=== PATIENT | male | born 1945 | race Caucasian/White ===

== ENCOUNTER 2021-06-13 12:32 | Inpatient (IN) ==
[2021-06-13] MEDS ORDERED: SODIUM CHLORIDE 0.9% 1,000 ML IV STA (16:24)
[2021-06-13 16:51] LABS: Basophils # 0.1 10*3/uL (0.0-0.2); Basophils % 0.9 % (0.0-0.8); Eosinophils % 0.4 % (0.00-10.9); Hematocrit 35.2 VOL% (42.0-52.0); Hemoglobin 10.8 GM/DL (14.0-18.0); Immature Granulocytes % 0.7 %; Immature Granulocytes Absolute 0.04 #; Lymphocytes # 0.4 10*3/uL (1.4-4.0); Lymphocytes % 7.7 % (21.2-54.2); Mean Corpuscular HGB Conc 30.7 GM/DL (32-36); Mean Corpuscular Volume 71.8 FL (87-102); Mean Platelet Volume 11.2 FL (9.6-12.0); Monocytes % 5.9 % (1.7-12.7); Neutrophils % 84.4 % (38.7-73.9); Platelet Count 211 T/CUMM (130-400); Red Cell Distribution Width 20.3 % (9.3-17.3); White Blood Count 5.5 T/CUMM (4-12)
[2021-06-13 17:04] LABS: Bilirubin,Total 0.4 MG/DL (0.20-1.00); Calcium 9.5 MG/DL (8.5-10.1); Osmolality,Calculated 266.7 MOS/KG (273-304); Potassium 4.1 MMOL/L (3.5-5.1); Total Protein 8.9 G/DL (6.4-8.2)
[2021-06-13] MEDS ORDERED: CLINDAMYCIN INJ 600 MG/50 ML PREMIX IV STA (17:29)
[2021-06-13] MEDS ORDERED: ACETAMINOPHEN 500 MG TABLET PO STA (17:29)
[2021-06-13 20:01] LABS: Bilirubin,Urine Small mg/dL (Negative); Blood, Urine Negative (Negative); Glucose,Urine (UA) Negative (Negative); Ketones,Urine Trace mg/dL (Negative); Nitrite,Urine Negative (Negative); Protein,Urine Trace MG/DL; Urine Appearance Clear (Clear); Urine Color Yellow (Yellow); Urine Specific Gravity 1.015 (1.001-1.035)
[2021-06-13 20:13] LABS: Bacteria,Urine Occasional /HPF (Few); Mucus,Urine Occasional /LPF (Occasional); RBC,Urine 3 /HPF (0-4)
[2021-06-13] MEDS ORDERED: DEXTROSE 10% 250 ML BAG IV PRN (20:19)
[2021-06-13] MEDS ORDERED: ONDANSETRON 4 MG/2 ML VIAL IV PRN (20:19)
[2021-06-13] MEDS ORDERED: GLUCAGON 1 MG VIAL IM PRN (20:19)
[2021-06-13] MEDS ORDERED: ZALEPLON 5 MG CAPSULE PO PRN (20:19)
[2021-06-13] MEDS ORDERED: ENOXAPARIN 40 MG/0.4 ML SYRINGE SUBCUT SCH (21:00)
[2021-06-13] MEDS: SODIUM CHLORIDE 0.9% 1,000 ML IV SCH (21:03)
[2021-06-13] MEDS: ACETAMINOPHEN 325 MG TABLET PO PRN (21:03)
[2021-06-14] MEDS: CLINDAMYCIN INJ 600 MG/50 ML PREMIX IV SCH ×2 (01:16→09:10)
[2021-06-14] MEDS: ACETAMINOPHEN 325 MG TABLET PO PRN ×2 (03:14→15:31)
[2021-06-14] MEDS ORDERED: IBUPROFEN 800 MG TABLET PO ONE (04:52)
[2021-06-14 05:43] LABS: Basophils % 1.3 % (0.0-0.8); Hematocrit 28.3 VOL% (42.0-52.0); Immature Granulocytes % 2.2 %; Immature Granulocytes Absolute 0.07 #; Lymphocytes # 0.3 10*3/uL (1.4-4.0); Lymphocytes % 8.4 % (21.2-54.2); Mean Corpuscular HGB Conc 31.8 GM/DL (32-36); Mean Corpuscular Volume 70.4 FL (87-102); Mean Platelet Volume 11.1 FL (9.6-12.0); Monocytes % 7.2 % (1.7-12.7); Neutrophils % 80.9 % (38.7-73.9); Red Blood Count 4.02 MC/CUMM (3.8-5.5); Red Cell Distribution Width 19.7 % (9.3-17.3)
[2021-06-14 05:52] LABS: Platelet Count 149 T/CUMM (130-400); White Blood Count 3.2 T/CUMM (4-12)
[2021-06-14 05:57] LABS: Calcium 8.8 MG/DL (8.5-10.1); Osmolality,Calculated 267.7 MOS/KG (273-304); Potassium 3.8 MMOL/L (3.5-5.1)
[2021-06-14] MEDS ORDERED: NITROGLYCERIN SL 0.4 MG TABLET SL PRN (08:29)
[2021-06-14] MEDS ORDERED: PNEUMOCOCCAL VACCINE (13 VALENT) 0.5 ML SYRINGE IM ONE (09:00)
[2021-06-14] MEDS: SODIUM CHLORIDE 0.9% 1,000 ML IV SCH (09:09)
[2021-06-14] MEDS: FENOFIBRATE 160 MG TABLET PO SCH (09:10)
[2021-06-14] MEDS: PANTOPRAZOLE 40 MG TABLET PO SCH (09:10)
[2021-06-14] MEDS: METOPROLOL SUCCINATE XL 25 MG TABLET PO SCH (09:10)
[2021-06-14] MEDS: CHOLECALCIFEROL 1,000 UNIT TABLET PO SCH (09:10)
[2021-06-14] MEDS: PIPERACILLIN/TAZOBACTAM 3,375 MG in SODIUM CHLORIDE 0.9% 100 ML IV SCH ×2 (14:24→21:23)
[2021-06-14] MEDS ORDERED: MORPHINE 4 MG/1 ML VIAL IV PRN ×2 (15:34)
[2021-06-14] MEDS: VANCOMYCIN INJ 1,250 MG in SODIUM CHLORIDE 0.9% 250 ML IV SCH (18:21)
[2021-06-15] MEDS: SODIUM CHLORIDE 0.9% 1,000 ML IV SCH ×4 (04:38→16:32)
[2021-06-15] MEDS: ACETAMINOPHEN 325 MG TABLET PO PRN (04:38)
[2021-06-15 06:08] LABS: Basophils % 1.2 % (0.0-0.8); Eosinophils # 0.1 10*3/uL (0.0-0.87); Eosinophils % 1.7 % (0.00-10.9); Hematocrit 29.8 VOL% (42.0-52.0); Hemoglobin 9.7 GM/DL (14.0-18.0); Immature Granulocytes % 2.6 %; Immature Granulocytes Absolute 0.09 #; Lymphocytes # 0.8 10*3/uL (1.4-4.0); Lymphocytes % 22.5 % (21.2-54.2); Mean Corpuscular HGB Conc 32.6 GM/DL (32-36); Mean Corpuscular Volume 68.7 FL (87-102); Monocytes % 6.1 % (1.7-12.7); Neutrophils % 65.9 % (38.7-73.9); Platelet Count 103 T/CUMM (130-400); Red Blood Count 4.34 MC/CUMM (3.8-5.5); White Blood Count 3.5 T/CUMM (4-12)
[2021-06-15 06:16] LABS: Calcium 8.8 MG/DL (8.5-10.1); Osmolality,Calculated 266.7 MOS/KG (273-304); Potassium 3.8 MMOL/L (3.5-5.1)
[2021-06-15 06:21] LABS: VLDL Cholesterol 34.2 MG/DL
[2021-06-15] MEDS ORDERED: LIDOCAINE 1% 50 ML VIAL ONE (06:25)
[2021-06-15] MEDS ORDERED: BUPIVACAINE MPF 0.25% 30 ML VIAL ONE (06:25)
[2021-06-15 06:26] LABS: Band Neutrophils 6 % (0-10); Hypochromia 1+; Lymphocytes 24 % (20-55); Microcytosis 1+; Segmented Neutrophils 61 % (50-85); Total Cells Counted 100
[2021-06-15] MEDS ORDERED: SEVOFLURANE 1 UNIT/15 MINUTE INH ONE (07:05)
[2021-06-15] MEDS ORDERED: ETOMIDATE 40 MG/20 ML VIAL IV ONE (07:05)
[2021-06-15] MEDS ORDERED: propofoL 200 MG/20 ML VIAL IV ONE (07:05)
[2021-06-15] MEDS ORDERED: LIDOCAINE 2% 5 ML VIAL ONE (07:05)
[2021-06-15] MEDS ORDERED: fentaNYL 100 MCG/2 ML VIAL ONE (07:06)
[2021-06-15] MEDS: PIPERACILLIN/TAZOBACTAM 3,375 MG in SODIUM CHLORIDE 0.9% 100 ML IV SCH ×3 (07:11→21:29)
[2021-06-15] MEDS ORDERED: SODIUM CHLORIDE 0.9% 1,000 ML IV SCH (07:30)
[2021-06-15] MEDS ORDERED: PHENYLEPHRINE 1 MG/10 ML SYRINGE IV ONE (07:37)
[2021-06-15] MEDS ORDERED: ONDANSETRON 4 MG/2 ML VIAL ONE (07:37)
[2021-06-15] MEDS ORDERED: DEXAMETHASONE 4 MG/1 ML VIAL ONE (07:37)
[2021-06-15] MEDS ORDERED: HYDROmorphone 2 MG/1 ML VIAL IV PRN (08:02)
[2021-06-15] MEDS ORDERED: ONDANSETRON 4 MG/2 ML VIAL IV PRN (08:02)
[2021-06-15] MEDS: METOPROLOL SUCCINATE XL 25 MG TABLET PO SCH (12:21)
[2021-06-15] MEDS ORDERED: SODIUM CHLORIDE 0.9% 500 ML IV ONE (12:32)
[2021-06-15] MEDS: CHOLECALCIFEROL 1,000 UNIT TABLET PO SCH (12:38)
[2021-06-15] MEDS: FENOFIBRATE 160 MG TABLET PO SCH (12:38)
[2021-06-15] MEDS: PANTOPRAZOLE 40 MG TABLET PO SCH (12:38)
[2021-06-15] MEDS: POLYETHYLENE GLYCOL POWDER 17 GM PACK PO SCH (13:55)
[2021-06-15] MEDS: VANCOMYCIN INJ 1,250 MG in SODIUM CHLORIDE 0.9% 250 ML IV SCH (17:45)
[2021-06-15] MEDS ORDERED: BISACODYL 5 MG TABLET PO SCH (21:00)
[2021-06-15] MEDS ORDERED: ATORVASTATIN 40 MG TABLET PO SCH (21:00)
[2021-06-16] MEDS: SODIUM CHLORIDE 0.9% 1,000 ML IV SCH (03:09)
[2021-06-16] MEDS: PIPERACILLIN/TAZOBACTAM 3,375 MG in SODIUM CHLORIDE 0.9% 100 ML IV SCH (05:30)
[2021-06-16 06:10] LABS: Basophils % 0.4 % (0.0-0.8); Hematocrit 25.8 VOL% (42.0-52.0); Hemoglobin 8.1 GM/DL (14.0-18.0); Immature Granulocytes % 3.8 %; Immature Granulocytes Absolute 0.17 #; Lymphocytes # 1.1 10*3/uL (1.4-4.0); Lymphocytes % 24.6 % (21.2-54.2); Mean Corpuscular HGB Conc 31.4 GM/DL (32-36); Mean Corpuscular Volume 71.7 FL (87-102); Monocytes % 8.9 % (1.7-12.7); Neutrophils % 62.3 % (38.7-73.9); Platelet Count 163 T/CUMM (130-400); Red Cell Distribution Width 20.5 % (9.3-17.3); White Blood Count 4.5 T/CUMM (4-12)
[2021-06-16 06:23] LABS: Osmolality,Calculated 281.5 MOS/KG (273-304); Potassium 3.8 MMOL/L (3.5-5.1)
[2021-06-16 06:31] LABS: Hypochromia 1+; Lymphocytes 25 % (20-55); Microcytosis 1+; Platelet Estimate Adequate; Segmented Neutrophils 68 % (50-85); Total Cells Counted 100
[2021-06-16 07:55] VITALS: BP 103/58
[2021-06-16] MEDS: METOPROLOL SUCCINATE XL 25 MG TABLET PO SCH (08:37)
[2021-06-16] MEDS: PANTOPRAZOLE 40 MG TABLET PO SCH (08:37)
[2021-06-16] MEDS: CHOLECALCIFEROL 1,000 UNIT TABLET PO SCH (08:37)
[2021-06-16] MEDS: POLYETHYLENE GLYCOL POWDER 17 GM PACK PO SCH (08:37)
[2021-06-16] MEDS: FENOFIBRATE 160 MG TABLET PO SCH (08:37)
== END 2021-06-16 12:00 | disposition home health service (06) | DRG 394 ==
LOC: N.ED 12:32 → N.3E 20:19
PROVIDERS: ADMIT Hospitalist; ATTEND Hospitalist